=== PATIENT | female | born 1950 | race Caucasian/White ===

== ENCOUNTER 2017-02-02 14:11 | Emergency (ER) | payer OTHER, MEDICARE ==
[2017-02-02] MEDS ORDERED: NS 1,000 ML IV ONE (16:10)
--- NOTE | 2017-02-02 16:25 | CPEKG ---
Heart Rate: 54 RR Interval: 1111 P-R Interval: 176 QRSD Interval: 82 QT Interval: 460 QTC Interval: 436 P [place]: -12 QRS [place]: 62 T Wave [place]: 40 EKG Severity - NORMAL ECG - EKG Impression: SINUS RHYTHM Electronically Signed By: Clayton Jaimes 02-Feb-2017 22:41:08
[2017-02-02 16:42] LABS: % IMMATURE GRANULYOCYTES 0.3 % (0.0-1.1); ABSOLUTE IMMATURE GRANULOCYTES 0.02 10^3/uL (0.00-0.10); ADD DIFF? NO; ADD MORPH? NO; ADD SCAN? NO; ATYPICAL LYMPHOCYTE FLAG 0 (0-99); FRAGMENT RBC FLAG 0 (0-99); HEMATOCRIT 40.2 % (38.0-47.0); HEMOGLOBIN 13.6 g/dL (12.6-16.3); LEFT SHIFT FLG 0 (0-99); LIPEMIA HEMOLYSIS FLAG 90 (0-99); MEAN CELL HEMOGLOBIN CONCENTR. 33.8 g/dL (32.4-36.7); MEAN CELL VOLUME 94.6 fL (81.5-99.8); PLATELET CLUMPS FLAG 50 (0-99); PLATELET COUNT 160 10^3/uL (150-400); RED BLOOD CELL COUNT 4.25 10^6/uL (4.18-5.33); RED CELL DISTRIBUTION WIDTH 12.6 % (11.5-15.2)
[2017-02-02 16:58] LABS: ANION GAP 13 mEq/L (8-16); CALCIUM 10.2 mg/dL (8.5-10.4); CARBON DIOXIDE 22 mEq/l (22-31); CHLORIDE 106 mEq/L (97-110); CREATININE 0.8 mg/dL (0.6-1.0); GLOMERULAR FILTRATION RATE > 60; GLUCOSE 114 mg/dL (70-100); POTASSIUM 3.8 mEq/L (3.5-5.2); SODIUM 141 mEq/L (134-144)
[2017-02-02] MEDS ORDERED: LORazepam 2 MG/ML INJ IVP ONE (17:47)
[2017-02-02] MEDS ORDERED: METOCLOPRAMIDE 10 MG/2 ML VIAL IVP ONE (17:59)
--- NOTE | 2017-02-02 18:16 | EDPHY ---
H & P Stated Complaint: headahce and nausea Time Seen by Provider: 02/02/17 16:50 - Personal History Current Tetanus/Diphtheria Vaccine: Yes - Medical/Surgical History Hx Asthma: Yes Hx Chronic Respiratory Disease: No Hx Diabetes: No Hx Cardiac Disease: No Hx Renal Disease: No Hx Cirrhosis: No Hx Alcoholism: No Hx HIV/AIDS: No Hx Splenectomy or Spleen Trauma: No Other PMH: high cholesterol. asthma. vertigo - Social History Smoking Status: Never smoked Constitutional: Initial Vital Signs Temperature (C) 36.3 C 02/02/17 14:19 Heart Rate 64 02/02/17 14:19 Respiratory Rate 18 02/02/17 14:19 Blood Pressure 134/81 H 02/02/17 14:19 O2 Sat (%) 96 02/02/17 14:19 O2 Delivery Mode Room Air Allergies/Adverse Reactions: penicillin G Allergy (Verified 02/02/17 14:23) Home Medications: Medication Instructions Recorded SIMVASTATIN 20 mg PO DAILY 02/02/17 Medical Decision Making - Diagnostics Imaging: Discussed imaging studies w/ acls specialist Radiologist, I viewed and interpreted images myself ED Course/Re-evaluation: CHIEF COMPLAINT: Headache, dizziness, nausea HISTORY OF PRESENT ILLNESS: The patient is a 67 y/o female, with a history of vertigo, complaining of headache, nausea, and dizziness worsening since this morning. She states she woke with an occipital headache that radiates to her forehead and did not improve with Tylenol. Throughout the day she developed nausea, burping, lightheadedness she describes as "motion sickness" without room spinning. Her symptoms worsen with movement and are alleviated slightly when lying still. She denies vomiting, vision changes, weakness, or paresthesias. She has a history of a few remote migraines. No prior brain MRI. REVIEW OF SYSTEMS: A 10 point review of systems was performed and is negative with the exception of the elements mentioned in the history of present illness. PHYSICAL EXAM: HR, BP, O2 Sat, RR. Temp noted General Appearance: Alert, well hydrated, appropriate, and non-toxic appearing. Head: Atraumatic without scalp tenderness or obvious injury Eyes: Pupils equal, round, reactive to light and accommodation, EOMI, no trauma , no injection. Ears: Clear bilaterally, no perforation, normal landmarks Nose: Atraumatic, no rhinorrhea, clear. Throat:Mucus membranes moist. Neck: Supple, non-tender, no lymphadenopathy. Respiratory: No retractions, no distress, no wheezes, and no accessory muscle use. Lungs are clear to auscultation bilaterally. Cardiovascular: Regular rate and rhythm, no murmurs, rubs, or gallops. Good capillary refill all extremities. Gastrointestinal: Abdomen is soft, non-tender, non-distended, no masses, no rebound, no guarding, no peritoneal signs. Musculoskeletal: Normal active ROM of all extremities, atraumatic. Neurological: Alert, appropriate, and interactive. The patient has normal DTRs and non-focal cranial nerves, motor, sensory, and cerebellar exam. Skin: No rashes, good turgor, no nodules on palpation. PAST MEDICAL HISTORY: Vertigo, migraines PAST SURGICAL HISTORY: denies SOCIAL HISTORY: Lives in [place] DIAGNOSTICS/PROCEDURES/CRITICAL CARE TIME: The 12 lead EKG was interpreted by myself. See hard copy and/or "tracemaster" electronic copy for interpretation. Brain MRI: No hemorrhage or evidence of TIA. White matter abnormalities. DIFFERENTIAL DIAGNOSIS: The differential diagnosis for the patient's dizziness included but was not limited to peripheral and central causes of vertigo, orthostatic causes including dehydration, cardiogenic and neurogenic causes, and blood loss. MEDICAL DECISION MAKING: This is a normally healthy 67 y/o female with a history of vertigo who presents with a 1-day history of headache, nausea, and "motion sickness." She has a normal neuro exam. Her symptoms likely represent positional vertigo, but need to rule out acute stroke or other process with brain MRI. IV established. Labs drawn. 10mg Reglan, 1mg IV Ativan, and 1L IV NS administered. MRI shows white matter abnormalities that will require neurology follow up. Reassessed patient and discussed imaging. She is feeling improved. Her exam remains unchanged. Recommended neurology follow up. Return precautions given. She agrees with this plan. - Data Points Laboratory Results: Laboratory Results 02/02/17 16:30 02/02/17 16:30 02/02/17 02/02/17 16:30 16:30 WBC 6.59 10^3/uL 10^3/uL (3.80-9.50) RBC 4.25 10^6/uL 10^6/uL (4.18-5.33) Hgb 13.6 g/dL g/dL (12.6-16.3) Hct 40.2 % % (38.0-47.0) MCV 94.6 fL fL (81.5-99.8) MCH 32.0 pg pg (27.9-34.1) MCHC 33.8 g/dL g/dL (32.4-36.7) RDW 12.6 % % (11.5-15.2) Plt Count 160 10^3/uL 10^3/uL (150-400) MPV 10.0 fL fL (8.7-11.7) Neut % (Auto) 80.6 % H % (39.3-74.2) Lymph % (Auto) 14.9 % L % (15.0-45.0) [place] % (Auto) 3.0 % L % (4.5-13.0) Eos % (Auto) 0.3 % L % (0.6-7.6) Baso % (Auto) 0.9 % % (0.3-1.7) Nucleat RBC Rel Count 0.0 % % (0.0-0.2) Absolute Neuts (auto) 5.31 10^3/uL 10^3/uL (1.70-6.50) Absolute Lymphs (auto) 0.98 10^3/uL L 10^3/uL (1.00-3.00) Absolute Monos (auto) 0.20 10^3/uL L 10^3/uL (0.30-0.80) Absolute Eos (auto) 0.02 10^3/uL L 10^3/uL (0.03-0.40) Absolute Basos (auto) 0.06 10^3/uL 10^3/uL (0.02-0.10) Absolute Nucleated RBC 0.00 10^3/uL 10^3/uL (0-0.01) Immature Gran % 0.3 % % (0.0-1.1) Immature Gran # 0.02 10^3/uL 10^3/uL (0.00-0.10) Sodium 141 mEq/L mEq/L (134-144) Potassium 3.8 mEq/L mEq/L (3.5-5.2) Chloride 106 mEq/L mEq/L (97-110) Carbon Dioxide 22 mEq/l mEq/l (22-31) Anion Gap 13 mEq/L mEq/L (8-16) BUN 13 mg/dL mg/dL (7-23) Creatinine 0.8 mg/dL mg/dL (0.6-1.0) Estimated GFR > 60 Glucose 114 mg/dL H mg/dL (70-100) Calcium 10.2 mg/dL mg/dL (8.5-10.4) Medications Given: Discontinued Medications Sodium Chloride (Ns) 1,000 mls @ 0 mls/hr IV ONCE ONE PRN Reason: Wide Open Stop: 02/02/17 16:11 Last Admin: 02/02/17 16:41 Dose: 1,000 mls Departure - Departure Disposition: Home, Routine, Self-Care Clinical Impression: Headache Qualifiers: Headache type: other headache syndrome Qualified Code(s): G44.89 - Other headache syndrome Condition: Good Instructions: General Headache (ED) Additional Instructions: Follow up with neurologist this week. Your brain MRI does not show evidence of stroke or TIA, but there are some white matter abnormalities that will require follow up. Use Tylenol as directed on the packaging if needed for pain for the next few days. Return to the ED for worsening of condition. Referrals: ANDREA BARBER [Other] - As per Instructions Abhi Giron MD [Medical Doctor] - As per Instructions Report Scribed for: Clayton Jaimes Report Scribed by: Deisy Maddox Date of Report: 02/02/17 Time of Report: 18:16
[2017-02-02] MEDS ORDERED: HYDROCODONE/APAP 5/325 TAB PO ONE (19:14)
[2017-02-02 19:17] VITALS: BP 115/61; PULSE 66; RESP 16; TEMP 98.1; O2SAT 95
== END 2017-02-02 19:24 | disposition home or self-care (01) ==
DX: G44.89 Other headache syndrome (principal); J45.909 Unspecified asthma, uncomplicated; R42 Dizziness and giddiness